=== PATIENT | female | born 1955 | race Caucasian/White ===

== ENCOUNTER 2021-08-28 06:12 | Day surgery (SDC) | payer MEDICARE, MEDICAID ==
[2021-08-27 09:51] LABS: COVID AG,FIA SOURCE NASAL SWAB
[~2021-08-28] VITALS: Ht 152.4 cm; Wt 57.7 kg
[2021-08-28] MEDS ORDERED: LIDOCAINE 2% 5 ML JELLY TP ONE (06:13)
[2021-08-28] MEDS ORDERED: BENZOCAINE 20% 50 MCG/SPRAY 57 GM TP ONE (06:13)
[2021-08-28] MEDS ORDERED: SODIUM CHLORIDE 0.9% 1,000 ML IV ONE (06:30)
[2021-08-28] MEDS ORDERED: SODIUM CHLORIDE 0.9% 1,000 ML ONE (06:44)
[2021-08-28 07:36] LABS: GLUCOMETER DEV NAME(LOC) SDS.; GLUCOSE,POINT OF CARE 82 MG/DL (70-110)
[2021-08-28] MEDS ORDERED: VERA120T91 PO (07:36)
[2021-08-28] MEDS ORDERED: MONT-35 PO (07:36)
[2021-08-28] MEDS ORDERED: CHOL25TA4 PO (07:36)
[2021-08-28] MEDS ORDERED: ALEN70TA65 PO (07:36)
[2021-08-28] MEDS ORDERED: MELO-107 PO (07:36)
[2021-08-28] MEDS ORDERED: FAMO20 PO (07:36)
[2021-08-28] MEDS ORDERED: MULT-660 PO (07:36)
[2021-08-28] MEDS ORDERED: MIDAZOLAM HCL 5 MG/ML VIAL ONE (07:49)
[2021-08-28] MEDS ORDERED: FentaNYL CITRATE PF 100 MCG/2 ML VIAL ONE (07:49)
[2021-08-28] MEDS ORDERED: MethylPREDNISolone SOD SUCC 125 MG/2 ML VIAL ONE (09:10)
[2021-08-28] MEDS ORDERED: MethylPREDNISolone SOD SUCC 125 MG/2 ML VIAL IVP ONE (09:15)
[2021-08-28] MEDS ORDERED: OXYGEN THERAPY IH SCH (20:00)
== END 2021-08-28 13:50 | disposition home or self-care (01) ==
LOC: SURGERY 06:12
PROVIDERS: ATTEND Internal Medicine Critical Care Medicine
DX: J38.4 Edema of larynx (principal); B37.0 Candidal stomatitis; J45.909 Unspecified asthma, uncomplicated; I10 Essential (primary) hypertension; Z79.899 Other long term (current) drug therapy; Z98.890 Other specified postprocedural states
CPT/HCPCS: 31623; 31624; 71045; 82962; 87015; 87070; 87101; 87206; 87220; 87426; 88112; 88184; 88185; 88312; C9803; J2250; J2930; J3010; J7030